=== PATIENT | female | born 1945 | race Caucasian/White ===

== ENCOUNTER 2020-04-29 10:18 | Inpatient (IN) | payer MEDICARE, OTHER ==
[~2020-04-29] VITALS: Ht 157.5 cm; Wt 89.1 kg
[~2020-04-29 10:18] MED LIST: KEFLEX CAP 500500 MG PO
[2020-04-29 12:27] LABS: HEMOGLOBIN 13.5 gm/dl (12.3-15.3); RED BLOOD COUNT 3.97 M/UL (4.00-5.10); WHITE BLOOD COUNT 7.9 K/UL (4.5-11.0)
[2020-04-29 12:56] LABS: BUN/CREATININE RATIO 19 (0-10)
[2020-04-29] MEDS ORDERED: RIZATRIPTAN10 MG PO (18:16)
[2020-04-29] MEDS ORDERED: CYMBALTA60 MG PO (18:17)
[2020-04-29] MEDS ORDERED: HYDROCODON-ACE1 EAC6 PO (18:17)
[2020-04-29] MEDS ORDERED: FENOFIBRATE160 MG PO (18:18)
[2020-04-29] MEDS ORDERED: ISOSORBIDE MONO30 MG PO (18:19)
[2020-04-29] MEDS ORDERED: NITROSTAT0.4 MG SL (18:19)
[2020-04-29] MEDS ORDERED: VOLTAREN ARTHRI20 GM TP (18:20)
[2020-04-29] MEDS ORDERED: TOPAMAX50 MG PO (18:20)
[2020-04-29] MEDS ORDERED: NEURONTIN600 MG PO (18:21)
[2020-04-29] MEDS ORDERED: SIMVASTATIN10 MG PO (18:21)
[2020-04-29] MEDS ORDERED: ASPIRIN CHEWABL81 MG PO (18:21)
[2020-04-29] MEDS ORDERED: TRAZODONE HCL150 MG PO (18:22)
[2020-04-29] MEDS ORDERED: STOOL SOFTENER100 MG PO (18:22)
[2020-04-29] MEDS ORDERED: VENTOLIN HFA 66.7 GM INH (18:22)
[2020-04-29] MEDS ORDERED: VITAMIN D21250 MCG PO (18:23)
[2020-04-29] MEDS ORDERED: CYANOCOBAL1000 MCG/1 INJ (18:24)
[2020-04-29] MEDS ORDERED: CLARITIN10 M2 PO (18:27)
[2020-04-29] MEDS ORDERED: EYE ITCH RELIEF5 ML EYEBOTH (18:28)
[2020-04-29] MEDS ORDERED: LEVOTHYROXINE125 MC1 PO (18:28)
[2020-04-29] MEDS ORDERED: OMEPRAZOLE20 MG PO (18:29)
[2020-04-29] MEDS ORDERED: LOPRESSOR 25 MG25 MG PO (18:29)
[2020-04-30 03:45] LABS: HEMOGLOBIN 12.4 gm/dl (12.3-15.3); RED BLOOD COUNT 3.65 M/UL (4.00-5.10); WHITE BLOOD COUNT 7.1 K/UL (4.5-11.0)
[2020-05-01 19:38] LABS: RED BLOOD COUNT 3.57 M/UL (4.00-5.10)
[2020-05-01 19:40] LABS: WHITE BLOOD COUNT 11.6 K/UL (4.5-11.0)
[2020-05-04 04:01] LABS: HEMOGLOBIN 10.9 gm/dl (12.3-15.3); WHITE BLOOD COUNT 10.6 K/UL (4.5-11.0)
[2020-05-04 04:22] LABS: RED BLOOD COUNT 3.19 M/UL (4.00-5.10)
[2020-05-04 17:16] LABS: HEMOGLOBIN 10.3 gm/dl (12.3-15.3); RED BLOOD COUNT 3.06 M/UL (4.00-5.10)
[2020-05-05 04:22] LABS: HEMOGLOBIN 9.6 gm/dl (12.3-15.3); RED BLOOD COUNT 2.88 M/UL (4.00-5.10); WHITE BLOOD COUNT 10.2 K/UL (4.5-11.0)
[2020-05-06 05:10] LABS: HEMOGLOBIN 9.9 gm/dl (12.3-15.3); RED BLOOD COUNT 2.95 M/UL (4.00-5.10); WHITE BLOOD COUNT 10.5 K/UL (4.5-11.0)
[2020-05-06 05:29] LABS: BUN/CREATININE RATIO 38 (0-10)
[2020-05-07 07:05] LABS: HEMOGLOBIN 10.3 gm/dl (12.3-15.3); RED BLOOD COUNT 3.09 M/UL (4.00-5.10); WHITE BLOOD COUNT 12.7 K/UL (4.5-11.0)
[2020-05-07 07:39] LABS: BUN/CREATININE RATIO 43 (0-10)
[2020-05-08 05:27] LABS: HEMOGLOBIN 9.6 gm/dl (12.3-15.3); RED BLOOD COUNT 2.89 M/UL (4.00-5.10)
[2020-05-08 05:56] LABS: BUN/CREATININE RATIO 65 (0-10)
[2020-05-09 05:04] LABS: HEMOGLOBIN 9.3 gm/dl (12.3-15.3); RED BLOOD COUNT 2.84 M/UL (4.00-5.10); WHITE BLOOD COUNT 12.7 K/UL (4.5-11.0)
[2020-05-09 05:07] LABS: BUN/CREATININE RATIO 59 (0-10)
[2020-05-11 04:38] LABS: HEMOGLOBIN 9.8 gm/dl (12.3-15.3); RED BLOOD COUNT 2.93 M/UL (4.00-5.10); WHITE BLOOD COUNT 10.4 K/UL (4.5-11.0)
[2020-05-11 04:50] LABS: BUN/CREATININE RATIO 60 (0-10)
[2020-05-12 05:17] LABS: HEMOGLOBIN 9.4 gm/dl (12.3-15.3); RED BLOOD COUNT 2.84 M/UL (4.00-5.10); WHITE BLOOD COUNT 10.3 K/UL (4.5-11.0)
[2020-05-12 05:30] LABS: BUN/CREATININE RATIO 57 (0-10)
[2020-05-13 05:39] LABS: HEMOGLOBIN 9.6 gm/dl (12.3-15.3); RED BLOOD COUNT 2.95 M/UL (4.00-5.10)
[2020-05-13 06:14] LABS: BUN/CREATININE RATIO 59 (0-10)
[2020-05-14 05:37] LABS: HEMOGLOBIN 10.7 gm/dl (12.3-15.3); RED BLOOD COUNT 3.19 M/UL (4.00-5.10)
[2020-05-14 05:45] LABS: WHITE BLOOD COUNT 16.7 K/UL (4.5-11.0)
[2020-05-14 06:01] LABS: BUN/CREATININE RATIO 85 (0-10)
[2020-05-15 05:37] LABS: HEMOGLOBIN 10.2 gm/dl (12.3-15.3); RED BLOOD COUNT 3.1 M/UL (4.00-5.10)
[2020-05-15 06:20] LABS: BUN/CREATININE RATIO 106 (0-10)
== END 2020-05-15 16:10 | disposition expired | DRG 207 ==
LOC: ER1 10:18 → CDU 13:41 → CCU 13:41 → PROG CARE 04-30 13:46 → CCU 04-30 17:48
PROVIDERS: Family Medicine; Internal Medicine; Internal Medicine Pulmonary Disease; ADMIT Internal Medicine
PROC: XW033E5 Introduction of Remdesivir Anti-infective into Peripheral Vein, Percutaneous Approach, New Technology Group 5 (ICD-10-PCS; 2020-04-29)
PROC: 8E0ZXY6 Isolation (ICD-10-PCS; 2020-04-29)
PROC: 5A09457 Assistance with Respiratory Ventilation, 24-96 Consecutive Hours, Continuous Positive Airway Pressure (ICD-10-PCS; 2020-04-29)
PROC: 3E0G76Z Introduction of Nutritional Substance into Upper GI, Via Natural or Artificial Opening (ICD-10-PCS; 2020-04-29)
PROC: XW13325 Transfusion of Convalescent Plasma (Nonautologous) into Peripheral Vein, Percutaneous Approach, New Technology Group 5 (ICD-10-PCS; principal; 2020-04-30)
PROC: 5A1955Z Respiratory Ventilation, Greater than 96 Consecutive Hours (ICD-10-PCS; 2020-05-02)
PROC: 0BH17EZ Insertion of Endotracheal Airway into Trachea, Via Natural or Artificial Opening (ICD-10-PCS; 2020-05-03)
PROC: 05HM33Z Insertion of Infusion Device into Right Internal Jugular Vein, Percutaneous Approach (ICD-10-PCS; 2020-05-04)
PROC: B543ZZA Ultrasonography of Right Jugular Veins, Guidance (ICD-10-PCS; 2020-05-04)
PROC: B24BZZZ Ultrasonography of Heart with Aorta (ICD-10-PCS; 2020-05-05)
PROC: 30233K1 Transfusion of Nonautologous Frozen Plasma into Peripheral Vein, Percutaneous Approach (ICD-10-PCS; 2020-05-14)
DX: U07.1 COVID-19 (principal); J12.82 Pneumonia due to coronavirus disease 2019; J80 Acute respiratory distress syndrome; A41.89 Other specified sepsis; R65.21 Severe sepsis with septic shock; E87.0 Hyperosmolality and hypernatremia; T79.7XXA Traumatic subcutaneous emphysema, initial encounter; N17.9 Acute kidney failure, unspecified; E87.2 Acidosis; F11.20 Opioid dependence, uncomplicated; J44.0 Chronic obstructive pulmonary disease with (acute) lower respiratory infection; R53.81 Other malaise; G70.89 Other specified myoneural disorders; M54.5 Low back pain; I10 Essential (primary) hypertension; E03.9 Hypothyroidism, unspecified; Z77.22 Contact with and (suspected) exposure to environmental tobacco smoke (acute) (chronic); G89.4 Chronic pain syndrome; G47.33 Obstructive sleep apnea (adult) (pediatric); E66.01 Morbid (severe) obesity due to excess calories; E87.6 Hypokalemia; E88.09 Other disorders of plasma-protein metabolism, not elsewhere classified; R00.0 Tachycardia, unspecified; E86.1 Hypovolemia; R07.9 Chest pain, unspecified; E87.70 Fluid overload, unspecified; F32.9 Major depressive disorder, single episode, unspecified; Z51.5 Encounter for palliative care; Z66 Do not resuscitate; Z98.84 Bariatric surgery status; Z68.35 Body mass index [BMI] 35.0-35.9, adult; Z88.8 Allergy status to other drugs, medicaments and biological substances; Z79.82 Long term (current) use of aspirin; Z79.890 Hormone replacement therapy; Z79.899 Other long term (current) drug therapy; L89.892 Pressure ulcer of other site, stage 2
CPT/HCPCS: ECHO; 0240U; 31500; 36415; 36430; 36600; 71045; 71275; 74018; 78579; 80048; 80053; 82550; 82553; 82803; 82962; 83605; 83735; 83874; 83880; 84132; 84439; 84443; 84484; 85025; 85027; 85379; 85610; 85730; 86140; 86900; 86901; 86927; 87040; 87070; 87205; 93005; 93306; 93971; 94002; 94003; 94640; 94660; 94760; 96365; 96375; 99285; A9540; C1751; J0360; J0456; J0696; J1100; J1205; J1642; J1644; J1650; J1940; J2060; J2185; J2250; J2270; J2704; J2920; J2930; J3010; J7030; J7050; J7070; Q9967